=== PATIENT | male | born 1985 | race Caucasian/White ===

== ENCOUNTER 2017-06-12 07:31 | Outpatient (CLI) | payer OTHER | END 2017-06-12 07:54 | disposition home or self-care (01) | LOC: EDSEX 07:31 → LAB 07:31 | DX: Z00.00 Encounter for general adult medical examination without abnormal findings (principal); Z11.3 Encounter for screening for infections with a predominantly sexual mode of transmission; N39.0 Urinary tract infection, site not specified; Z11.4 Encounter for screening for human immunodeficiency virus [HIV]; Z13.220 Encounter for screening for lipoid disorders; Z13.818 Encounter for screening for other digestive system disorders ==

== ENCOUNTER 2018-04-10 13:04 | Outpatient (CLI) | payer OTHER | END 2018-04-10 13:21 | disposition home or self-care (01) | LOC: RAD 13:04 → MRI 13:15 → RAD 13:21 | DX: G89.11 Acute pain due to trauma (principal); T79.8XXA Other early complications of trauma, initial encounter; M25.511 Pain in right shoulder; R07.1 Chest pain on breathing | CPT/HCPCS: 73218 ==

== ENCOUNTER 2022-04-21 09:47 | Outpatient (CLI) | payer OTHER | END 2022-04-21 09:56 | disposition home or self-care (01) | LOC: RAD 09:47 | PROVIDERS: ATTEND General Practice | DX: M50.30 Other cervical disc degeneration, unspecified cervical region (principal) ==

== ENCOUNTER 2022-05-31 10:04 | Outpatient (CLI) | payer OTHER | END 2022-05-31 10:10 | disposition home or self-care (01) | LOC: RAD 10:04 | PROVIDERS: ATTEND General Practice | DX: M48.56XS Collapsed vertebra, not elsewhere classified, lumbar region, sequela of fracture (principal); M48.56XD Collapsed vertebra, not elsewhere classified, lumbar region, subsequent encounter for fracture with routine healing; M54.50 Low back pain, unspecified ==

== ENCOUNTER 2022-09-26 07:16 | Outpatient (CLI) | payer OTHER | END 2022-09-26 07:23 | disposition home or self-care (01) | LOC: RAD 07:16 | PROVIDERS: ATTEND General Practice | DX: M48.062 Spinal stenosis, lumbar region with neurogenic claudication (principal) ==

== ENCOUNTER 2023-11-07 10:38 | Outpatient (CLI) | payer OTHER | END 2023-11-07 10:51 | disposition home or self-care (01) | LOC: RAD 10:38 | PROVIDERS: ATTEND Specialist | DX: M54.50 Low back pain, unspecified (principal) ==